=== PATIENT | female | born 1990 | race African-American/Black ===

== ENCOUNTER 2016-10-12 00:35 | Emergency (ER) | payer OTHER ==
[2016-10-12 00:46] VITALS: BMI 34.7
[2016-10-12] MEDS ORDERED: KETOROLAC TROMETHAMINE 30 MG/1 ML VIAL IM ONE (01:17)
[2016-10-12] MEDS ORDERED: diazePAM CARPU-JECT 10 MG/2 ML DISP.SYRIN IVPUSH ONE (01:17)
[2016-10-12] MEDS ORDERED: SODIUM CHLORIDE 1,000 ML IV STA (01:17)
--- NOTE | 2016-10-12 01:23 | PDOC ---
History of Present Illness - General Chief Complaint: Pain Stated Complaint: NECK PAIN Time Seen by Provider: 10/12/16 01:03 History Source: Patient Exam Limitations: No Limitations - History of Present Illness Initial Comments: 10/12/16 01:18 26yo Female patient presents to ED c/o neck pain. Patient reports pain began night as a cramp with shooting pains and progressively gotten worse. She states she has been using Motrin and Zanaflex for symptoms management. Patient states symptoms worsened tonight to the point she has limited ROM in her neck and swollen left shoulder. 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 LNMP: Oct 02. She denies fever, cough, photophobia, CP, Abd pain, n/v/d , rash, confusion, disorientation, diff breathing or any other complaints at this time. Timing/Duration: other (3 day history) Severity: severe Modifying Factors: improves with: immobilization, medication Associated Symptoms: denies: denies symptoms, chest pain, cough, diaphoresis, fever/chills, headaches, loss of appetite, malaise, nausea/vomiting, rash, seizure, shortness of breath, syncope, weakness, other Aspirin Received prior to arrival: No: no aspirin today, unknown, 81 mg x 1, 81 mg x 2, 81 mg x 3, 81 mg x 4, 325 mg x 1, provided at home, provided by EMS, provided by ED Past History - Travel Traveled outside of the country in the last 30 days: No Close contact w/someone who was outside of country & ill: No - Past Medical History Allergies/Adverse Reactions: Allergies Allergy/AdvReac Type Severity Reaction Status Date / Time shellfish derived Allergy Verified 10/12/16 00:43 Home Medications: Ambulatory Orders Ibuprofen 800 mg PO Q8H PRN #30 tablet 10/12/16 Methocarbamol [Robaxin -] 750 mg PO Q8H PRN #21 tablet 10/12/16 Other medical history: denies - Surgical History Abdominal Surgery: Yes (umbilical hernia at 9 yrs old) - Psycho/Social/Smoking Cessation Hx Suicidal Ideation: No Smoking History: Never smoked Review of Systems - Review of Systems Able to Perform ROS?: Yes Is the patient limited Chinese proficient: No Constitutional: No: Chills, Fever, Loss of Appetite, Malaise, Night Sweats, Weakness HEENTM: No: Blurred Vision, Double Vision, Nose Congestion, Nose Bleeding, Throat Pain, Throat Swelling, Difficulty Swallowing Respiratory: No: Cough, Orthopnea, Shortness of Breath, Stridor, Wheezing, Productive cough, Hemoptysis Cardiac (ROS): No: Chest Pain, Edema, Lightheadedness, Palpitations, Syncope, Chest Tightness ABD/GI: No: Diarrhea, Nausea, Poor Appetite, Poor Fluid Intake, Rectal Bleeding , Vomiting, Tarry Stools : No: Burning, Dysuria, Discharge, Frequency, Flank Pain, Pain, Urgency Musculoskeletal: Yes: Neck Pain. No: Back Pain, Joint Pain, Joint Swelling, Muscle Pain, Muscle Weakness, Joint Stiffness Integumentary: No: Bruising, Erythema, Rash Neurological: No: Seizure, Weakness All Other Systems: Reviewed and Negative *Physical Exam - Vital Signs Last Vital Signs Temp Pulse Resp BP Pulse Ox 98 F 78 18 134/77 99 10/12/16 00:37 10/12/16 00:37 10/12/16 00:37 10/12/16 00:37 10/12/16 00:37 - Physical Exam General Appearance: Yes: Nourished, Appropriately Dressed, Apparent Distress, Moderate Distress. No: Mild Distress HEENT: positive: EOMI, MI, Normal ENT Inspection, Normal Voice, Symmetrical, TMs Normal, Pharynx Normal. negative: Photophobia, Muffled/Hoarse voice, Pharyngeal Erythema, Tonsillar Exudate, Sinus Tenderness, TM Bulging, TM Dull, TM Erythema, Excessive drooling Neck: positive: Tender (+ Left lateral neck tenderness on examination.), Trachea midline, Normal Thyroid, Supple, Decreased range of motion, Tender lateral. negative: Rigid, Stridor, Lymphadenopathy (R), Lymphadenopathy (L), Tender midline Respiratory/Chest: positive: Lungs Clear, Normal Breath Sounds. negative: Respiratory Distress, Accessory Muscle Use, Labored Respiration, Rapid RR, Rhonchi, Stridor, Wheezing Cardiovascular: positive: Regular Rhythm, Regular Rate. negative: Edema, JVD, Murmur Gastrointestinal/Abdominal: positive: Normal Bowel Sounds, Soft. negative: Distended, Guarding, Rebound, Tenderness Lymphatic: negative: Adenopathy Musculoskeletal: positive: Normal Inspection, Muscle Spasm (Left trapezius muscle). negative: CVA Tenderness Extremity: positive: Normal Capillary Refill, Normal Inspection. 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 Patient also request 1 day off work. Will d/c home with antiinflammatory and muscle relaxants. *DC/Admit/Observation/Transfer Diagnosis at time of Disposition: Sprain of cervical neck Qualifiers: Encounter type: initial encounter Qualified Code(s): S13.9XXA - Sprain of joints and ligaments of unspecified parts of neck, initial encounter - Discharge Dispostion Disposition: HOME Condition at time of disposition: Improved Admit: No - Prescriptions Prescriptions: Ibuprofen 800 mg PO Q8H PRN #30 tablet PRN Reason: Mild Pain Methocarbamol [Robaxin -] 750 mg PO Q8H PRN #21 tablet PRN Reason: Neck Pain - Patient Instructions Printed Discharge Instructions: Whiplash Additional Instructions: FOLLOW UP WITH YOUR PRIMARY CARE PROVIDER IN 1 WEEK. CALL TO SCHEDULE APPOINTMENT. TAKE MEDICATIONS PRESCRIBED. APPLY WARM COMPRESS TO AFFECTED AREA NEEDED. TAKE WARM SHOWERS. RETURN IF WORSENING OF SYMPTOMS. Print Language: SLOVENIAN - Post Discharge Activity Work/School Note: Back to Work
[2016-10-12 01:50] LABS: URINE APPEARANCE CLEAR; URINE BILIRUBIN NEGATIVE (NEGATIVE); URINE BLOOD NEGATIVE (NEGATIVE); URINE COLOR LTYELLOW; URINE GLUCOSE (UA) NEGATIVE (NEGATIVE); URINE KETONE TRACE (NEGATIVE); URINE LEUK ESTERASE NEGATIVE (NEGATIVE); URINE NITRITE NEGATIVE (NEGATIVE); URINE PROTEIN NEGATIVE (NEGATIVE); URINE UROBILINOGEN NEGATIVE E.U./dl (0.2-1.0)
[2016-10-12] MEDS ORDERED: diazePAM CARPU-JECT 10 MG/2 ML DISP.SYRIN ONE (01:53)
[2016-10-12] MEDS ORDERED: KETOROLAC TROMETHAMINE 30 MG/1 ML VIAL ONE (01:54)
[2016-10-12 04:04] VITALS: BP 122/76; PULSE 75; TEMP 98
== END 2016-10-12 04:20 | disposition home or self-care (01) ==
LOC: JER 00:35
PROC: 3E0337Z Introduction of Electrolytic and Water Balance Substance into Peripheral Vein, Percutaneous Approach (ICD-10-PCS; principal; 2016-10-12)
PROC: 3E033NZ Introduction of Analgesics, Hypnotics, Sedatives into Peripheral Vein, Percutaneous Approach (ICD-10-PCS; 2016-10-12)
PROC: 3E0233Z Introduction of Anti-inflammatory into Muscle, Percutaneous Approach (ICD-10-PCS; 2016-10-12)
DX: S13.8XXA Sprain of joints and ligaments of other parts of neck, initial encounter (principal); X58.XXXA Exposure to other specified factors, initial encounter; Y93.89 Activity, other specified; Y92.9 Unspecified place or not applicable; Y99.9 Unspecified external cause status
CPT/HCPCS: 81003; 84703; 96361; 96372; 96374; 99283-25

== ENCOUNTER 2018-03-19 20:20 | Emergency (ER) | payer SELFPAY ==
[2018-03-19 20:26] VITALS: BP 114/91; PULSE 97; TEMP 98.6; BMI 33.5
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
[2018-03-19] MEDS ORDERED: DIPHTH,PERTUSS(ACELL),TET 0.5 ML DISP.SYRIN IM ONE (20:45)
[2018-03-19] MEDS ORDERED: AMOX TR/POT CLAV 875MG/125MG TABLETS (FP) PO ONE (20:48)
[2018-03-19] MEDS ORDERED: AMOX TR/POT CLAV 875MG/125MG TABLETS (FP) ONE (20:56)
== END 2018-03-19 21:10 | disposition home or self-care (01) ==
LOC: FER 20:20
PROC: 3E0234Z Introduction of Serum, Toxoid and Vaccine into Muscle, Percutaneous Approach (ICD-10-PCS; principal; 2018-03-19)
DX: S51.852A Open bite of left forearm, initial encounter (principal); W50.3XXA Accidental bite by another person, initial encounter; Y93.89 Activity, other specified; Y92.159 Unspecified place in reform school as the place of occurrence of the external cause; Y99.0 Civilian activity done for income or pay; Z72.0 Tobacco use
CPT/HCPCS: 90715; 99283-25

== ENCOUNTER 2018-10-03 13:07 | Emergency (ER) | payer OTHER ==
[2018-10-03 13:12] VITALS: BP 140/92; PULSE 133; BMI 34.9
[2018-10-03] MEDS ORDERED: KETOROLAC TROMETHAMINE 60 MG/2 ML VIAL IM ONE (13:50)
--- NOTE | 2018-10-03 13:52 | PDOC ---
History of Present Illness - General Chief Complaint: Sore Throat Stated Complaint: SORE THROAT Time Seen by Provider: 10/03/18 13:35 - History of Present Illness Initial Comments: 10/03/18 13:51 28-year-old female poor historian without comorbidities presents for evaluation of sore throat 2 days. She states she was seen in another hospital last night given antibiotics for throat infection she is unsure the antibiotics however she states the pharmacy was unable to give her the antibiotics that was prescribed to her because they did not have them. Past History - Past Medical History Allergies/Adverse Reactions: Allergies Allergy/AdvReac Type Severity Reaction Status Date / Time shrimp Allergy Verified 10/03/18 13:23 Home Medications: Ambulatory Orders NK [No Known Home Medication] 10/03/18 COPD: No - Surgical History Abdominal Surgery: Yes (UMBILICIAL HERNIA) - Suicide/Smoking/Psychosocial Hx Smoking History: Never smoked Have you smoked in the past 12 months: Yes Number of Cigarettes Smoked Daily: 1 Hx Alcohol Use: No (occasional) Review of Systems - Review of Systems Constitutional: Yes: Fever, Malaise HEENTM: Yes: Throat Pain *Physical Exam - Vital Signs Last Vital Signs Temp Pulse Resp BP Pulse Ox 102.8 F H 133 H 20 140/92 99 10/03/18 13:09 10/03/18 13:09 10/03/18 13:09 10/03/18 13:09 10/03/18 13:09 - Physical Exam Comments: 10/03/18 13:52 HEAD: NC/AT EYES: Conjuntiva clear Ears: Canals and TM's normal NOSE: No d/c THROAT: Moist mucous membrances, oral pharanx clear, uvula midline NECK: Supple without adenopathy CARDIAC: S1 S2 LUNGS: CTA Full and Equal breath sounds ABDOMEN: Soft NT ND MS: Full ROM in all joints without edema NEUROLOGIC: No gross sensory or motor deficits, NVID SKIN: Normal color and temperature no lesions or rashes Moderate Sedation - Procedure Monitoring Vital Signs: Procedure Monitoring Vital Signs Temperature 102.8 F H 10/03/18 13:09 Pulse Rate 133 H 10/03/18 13:09 Respiratory Rate 20 10/03/18 13:09 Blood Pressure 140/92 10/03/18 13:09 O2 Sat by Pulse Oximetry (%) 99 10/03/18 13:09 *DC/Admit/Observation/Transfer Diagnosis at time of Disposition: Upper respiratory infection - Discharge Dispostion Disposition: HOME Condition at time of disposition: Stable Decision to Admit order: No - Referrals Referrals: Chao Ram [Non Staff, Medical] - - Patient Instructions Printed Discharge Instructions: DI for Viral Upper Respiratory Infection -- Adult Additional Instructions: Her flu swab and strep test were negative today. Return to the emergency room should symptoms worsen or go unresolved. Please follow-up with primary care physician in one to 2 days for further evaluation and treatment options. Continue to take Tylenol and Motrin for pain and fever if as needed - Post Discharge Activity
[2018-10-03] MEDS ORDERED: KETOROLAC TROMETHAMINE 60 MG/2 ML VIAL ONE (13:53)
[2018-10-03 14:47] VITALS: TEMP 101.4
== END 2018-10-03 14:52 | disposition home or self-care (01) ==
LOC: JERFT 13:07
PROC: 3E0233Z Introduction of Anti-inflammatory into Muscle, Percutaneous Approach (ICD-10-PCS; principal; 2018-10-03)
DX: J06.9 Acute upper respiratory infection, unspecified (principal); B97.89 Other viral agents as the cause of diseases classified elsewhere
CPT/HCPCS: 87070; 87804; 87880; 96372; 99281-25

== ENCOUNTER 2019-05-09 17:10 | Emergency (ER) | payer OTHER ==
[2019-05-09 17:24] VITALS: BP 139/71; PULSE 84; TEMP 98.3; BMI 36.9
--- NOTE | 2019-05-09 17:31 | PDOC ---
History of Present Illness - General Chief Complaint: Cold Symptoms Stated Complaint: HEAD/CHEST/PAIN/DIFFICULTY BREATHING Time Seen by Provider: 05/09/19 17:25 - History of Present Illness Initial Comments: 05/09/19 17:30 28-year-old female presents for evaluation of cold symptoms times one day without fever Past History - Past Medical History Allergies/Adverse Reactions: Allergies Allergy/AdvReac Type Severity Reaction Status Date / Time shellfish derived Allergy Verified 05/09/19 17:24 shrimp Allergy Verified 10/03/18 13:23 Home Medications: Ambulatory Orders NK [No Known Home Medication] 10/03/18 COPD: No - Surgical History Abdominal Surgery: Yes (UMBILICIAL HERNIA) - Suicide/Smoking/Psychosocial Hx Smoking History: Never smoked Have you smoked in the past 12 months: Yes Number of Cigarettes Smoked Daily: 1 Information on smoking cessation initiated: No Hx Alcohol Use: No Drug/Substance Use Hx: No Review of Systems - Review of Systems Constitutional: No: Fever HEENTM: Yes: Nose Congestion *Physical Exam - Vital Signs Last Vital Signs Temp Pulse Resp BP Pulse Ox 98.3 F 84 18 139/71 99 05/09/19 17:22 05/09/19 17:22 05/09/19 17:22 05/09/19 17:22 05/09/19 17:22 - Physical Exam Comments: 05/09/19 17:30 HEAD: NC/AT EYES: Conjuntiva clear Ears: Canals and TM's normal NOSE: No d/c THROAT: Moist mucous membrances, oral pharanx clear, uvula midline NECK: Supple without adenopathy CARDIAC: S1 S2 LUNGS: CTA Full and Equal breath sounds ABDOMEN: Soft NT ND MS: Full ROM in all joints without edema NEUROLOGIC: No gross sensory or motor deficits, NVID SKIN: Normal color and temperature no lesions or rashes Medical Decision Making - Medical Decision Making 05/09/19 17:30 Most likely a viral upper respiratory infection. Discussed supportive care. *DC/Admit/Observation/Transfer Diagnosis at time of Disposition: Upper respiratory infection - Discharge Dispostion Disposition: HOME Condition at time of disposition: Stable Decision to Admit order: No - Referrals Referrals: Richard Rivas MD [Staff Physician] - - Patient Instructions Printed Discharge Instructions: DI for Viral Upper Respiratory Infection -- Adult Additional Instructions: Return To the emergency room for worsening symptoms. Please follow-up with internal medicine in 1-2 days for further evaluation and treatment options. He does not require antibiotics at this time. - Post Discharge Activity
== END 2019-05-09 18:19 | disposition home or self-care (01) ==
LOC: JERFT 17:10
DX: J06.9 Acute upper respiratory infection, unspecified (principal)
CPT/HCPCS: 99282-25

== ENCOUNTER 2019-06-29 11:17 | Emergency (ER) | payer OTHER ==
[2019-06-29 11:23] VITALS: BP 120/75; PULSE 83; TEMP 98.4; BMI 35.2
[2019-06-29] MEDS ORDERED: METOCLOPRAMIDE HCL INJECTION 10 MG/2 ML VIAL IVPB ONE (11:46)
[2019-06-29] MEDS ORDERED: KETOROLAC TROMETHAMINE 30 MG/1 ML VIAL IVPUSH ONE (11:49)
[2019-06-29] MEDS ORDERED: METOCLOPRAMIDE HCL INJECTION 10 MG/2 ML VIAL ONE (11:54)
[2019-06-29] MEDS ORDERED: KETOROLAC TROMETHAMINE 30 MG/1 ML VIAL ONE (11:54)
--- NOTE | 2019-06-29 12:00 | PDOC ---
History of Present Illness - General Chief Complaint: Headache Stated Complaint: SEVERE HEADACHE Time Seen by Provider: 06/29/19 11:31 History Source: Patient - History of Present Illness Severity: Yes: moderate Past History - Past Medical History Allergies/Adverse Reactions: Allergies Allergy/AdvReac Type Severity Reaction Status Date / Time shellfish derived Allergy Verified 06/29/19 11:23 shrimp Allergy Verified 06/29/19 11:23 Home Medications: Ambulatory Orders NK [No Known Home Medication] 10/03/18 COPD: No - Surgical History Abdominal Surgery: Yes (UMBILICIAL HERNIA) - Psycho Social/Smoking Cessation Hx Smoking History: Never smoked Have you smoked in the past 12 months: Yes Number of Cigarettes Smoked Daily: 1 Hx Alcohol Use: Yes (OCCASIONALLY) Drug/Substance Use Hx: No Review of Systems - Review of Systems Constitutional: No: Chills, Fever, Unexplained wgt Loss HEENTM: No: Eye Pain, Blurred Vision ABD/GI: No: Nausea, Vomiting Neurological: Yes: Headache. No: Dizziness *Physical Exam - Vital Signs Last Vital Signs Temp Pulse Resp BP Pulse Ox 98.4 F 83 16 120/75 100 06/29/19 11:21 06/29/19 11:21 06/29/19 11:21 06/29/19 11:21 06/29/19 11:21 - Physical Exam General Appearance: Yes: Appropriately Dressed. 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 Pain located to frontal head diffusely , sharp, 8-9/10, intermittent, with no exacerbating factors. Taking multiple [id number] meds with no relief. Denies any dizziness visual changes nausea and vomiting. Has had headaches in the past but usually not this persistent. No recent head injury. see exam GONZALEZ No red flags at this time Stable and in NAD w/ intact neuro exam Declines preg test as not currently sexually active per pt -pain control in ED and reassess 06/29/19 13:18 Went to re-assess patient after pain meds and unable to locate patient in ED. Patient's IV bag with IV catheter seen hanging on IV pole. ED nurse aware Discharge - Discharge Information Problems reviewed: Yes Clinical Impression/Diagnosis: Headache Qualifiers: Headache type: unspecified Headache chronicity pattern: acute headache Intractability: not intractable Qualified Code(s): R51 - Headache Condition: Stable Disposition: ELOPED - Follow up/Referral Referrals: Eloy Schilling MD [Staff Physician] - - Patient Discharge Instructions Patient Printed Discharge Instructions: DI for Headache Additional Instructions: The cause of her headache is unclear at this time and you will need further evaluation with a neurologist. Please follow-up with Dr. Schilling of neurology For your headaches try extra strength Tylenol or Excedrin as needed - Post Discharge Activity Work/Back to School Note: Back to Work
--- NOTE | 2019-06-29 12:43 | PDOC ---
*Physical Exam - Vital Signs Last Vital Signs Temp Pulse Resp BP Pulse Ox 98.4 F 83 16 120/75 100 06/29/19 11:21 06/29/19 11:21 06/29/19 11:21 06/29/19 11:21 06/29/19 11:21 ED Treatment Course - Medications Given in the ED: ED Medications Discontinued Medications Generic Name Dose Route Start Last Admin Trade Name Amaury PRN Reason Stop Dose Admin Ketorolac Tromethamine 30 mg 06/29/19 11:49 06/29/19 12:12 Toradol Injection - IVPUSH 06/29/19 11:50 30 mg ONCE ONE Administration Metoclopramide HCl 10 mg 06/29/19 11:46 06/29/19 12:12 Reglan Injection - IVPB 06/29/19 11:47 10 mg ONCE ONE Administration Medical Decision Making - Medical Decision Making 06/29/19 12:43 Pt seen by Midlevel Provider under my direct supervision I was available for consultation Pt apparently eloped prior to the completing her assessment and treatment I agree with plan as outlined by Midlevel Provider Discharge - Discharge Information Problems reviewed: Yes Clinical Impression/Diagnosis: Eloped from emergency department Headache Qualifiers: Headache type: unspecified Headache chronicity pattern: acute headache Intractability: not intractable Qualified Code(s): R51 - Headache Condition: Stable Disposition: ELOPED - Follow up/Referral Referrals: Eloy Schilling MD [Staff Physician] - - Patient Discharge Instructions Patient Printed Discharge Instructions: DI for Headache Additional Instructions: The cause of her headache is unclear at this time and you will need further evaluation with a neurologist. Please follow-up with Dr. Schilling of neurology For your headaches try extra strength Tylenol or Excedrin as needed - Post Discharge Activity Work/Back to School Note: Back to Work
== END 2019-06-29 13:30 | disposition left against medical advice (07) ==
LOC: JER 11:17
PROC: 3E0333Z Introduction of Anti-inflammatory into Peripheral Vein, Percutaneous Approach (ICD-10-PCS; principal; 2019-06-29)
PROC: 3E033GC Introduction of Other Therapeutic Substance into Peripheral Vein, Percutaneous Approach (ICD-10-PCS; 2019-06-29)
DX: R51 Headache (principal); Z91.013 Allergy to seafood
CPT/HCPCS: 96374; 96375; 99282-25

== ENCOUNTER 2019-09-23 20:32 | Emergency (ER) | payer OTHER ==
--- NOTE | 2019-09-23 20:34 | PDOC ---
Rapid Medical Evaluation Chief Complaint: Pain Time Seen by Provider: 09/23/19 20:33 Medical Evaluation: Allergies Allergy/AdvReac Type Severity Reaction Status Date / Time shellfish derived Allergy Verified 06/29/19 11:23 shrimp Allergy Verified 06/29/19 11:23 09/23/19 20:33 HPI: Abdominal pain x1 week PE:Labs ORDERS: Belly labs Discharge Disposition - Diagnosis Abdominal pain - Referrals - Patient Instructions - Post Discharge Activity
[2019-09-23 20:36] VITALS: TEMP 97.7; BMI 35.7
[2019-09-23] MEDS ORDERED: FAMOTIDINE 20 MG/50 ML IVPB 20 MG/50 ML MG IVPB ONE ×2 (21:18→21:46)
[2019-09-23] MEDS ORDERED: METOCLOPRAMIDE HCL INJECTION 10 MG/2 ML VIAL IVPB ONE (21:18)
[2019-09-23] MEDS ORDERED: SODIUM CHLORIDE 1,000 ML IV STA (21:18)
[2019-09-23] MEDS ORDERED: ACETAMINOPHEN 1000 MG/100 ML VIAL (NON FORMULARY) IVPB ONE (21:18)
--- NOTE | 2019-09-23 21:40 | PDOC ---
History of Present Illness - General History Source: Patient Exam Limitations: Clinical Condition - History of Present Illness Initial Comments: 09/23/19 21:36 Patient with no significant past medical history present with complaint of one- week history of pain to right lower abdomen and burning sensation epigastric region after eating. Patient reported she followed up with her [employer] 4 days ago for symptoms and all STD test done was negative which patient presented with lab results but report no ultrasound of the abdomen was done. Patient reported history of ovarian cyst. Denies urinary frequency, dysuria, burning with urination, chest pain, shortness of breath, diarrhea or constipation. LMP August 24. Patient reports she was prescribed Midol for abdominal pain but has not been taking it. Denies any other symptoms Is this a multiple visit Asthma Patient?: No Timing/Duration: 1 week Associated Symptoms: denies: chest pain, cough, fever/chills, shortness of breath, weakness <Alin Son - Last Filed: 09/24/19 01:11> <Adriano Chiang - Last Filed: 09/24/19 02:32> - General Chief Complaint: Pain Stated Complaint: LOWER ABD PAIN Time Seen by Provider: 09/23/19 20:33 Past History - Past Medical History COPD: No - Surgical History Abdominal Surgery: Yes (UMBILICIAL HERNIA) - Psycho Social/Smoking Cessation Hx Smoking History: Never smoked Have you smoked in the past 12 months: Yes Number of Cigarettes Smoked Daily: 1 Hx Alcohol Use: Yes (OCCASIONALLY) Drug/Substance Use Hx: No <Alin Son - Last Filed: 09/24/19 01:11> <Adriano Chiang - Last Filed: 09/24/19 02:32> - Past Medical History Allergies/Adverse Reactions: Allergies Allergy/AdvReac Type Severity Reaction Status Date / Time shellfish derived Allergy Verified 09/23/19 20:36 shrimp Allergy Verified 09/23/19 20:36 Home Medications: Ambulatory Orders Docusate Sodium [Colace -] 100 mg PO BID #14 capsule 09/24/19 Polyethylene Glycol 3350 [Miralax (For Daily Use) -] 17 gm PO DAILY 7 Days #1 bottle 09/24/19 Review of Systems - Review of Systems Able to Perform ROS?: Yes Is the patient limited Swedish proficient: No Constitutional: No: Chills, Fever, Malaise HEENTM: No: Symptoms Reported, See HPI, Eye Pain, Blurred Vision, Tearing, Recent change in vision, Double Vision, Cataracts, Ear Pain, Ocular Prothesis, Ear Discharge, Nose Pain, Nose Congestion, Tinnitus, Nose Bleeding, Hearing Loss , Throat Pain, Throat Swelling, Mouth Pain, Dental Problems, Difficulty Swallowing, Mouth Swelling, Other Respiratory: No: Symptoms reported, See HPI, Cough, Orthopnea, Shortness of Breath, SOB with Exertion, SOB at Rest, Stridor, Wheezing, Productive cough, Hemoptysis, Other Cardiac (ROS): Yes: Symptoms Reported, See HPI, Other (heart burn). No: Chest Pain, Edema, Irregular Heart Rate, Lightheadedness, Palpitations, Syncope, Chest Tightness ABD/GI: Yes: Symptoms Reported, See HPI, Nausea, Abdominal cramping (LLQ abd pain). No: Abd. Pain w/ defecation, Blood Streaked Bowels, Constipated, Diarrhea, Difficulty Swallowing, Poor Appetite, Poor Fluid Intake, Rectal Bleeding, Vomiting, Indigestion, Other : No: Symptoms Reported, Burning, Dysuria, Discharge, Frequency, Hematuria, Urgency Musculoskeletal: No: Symptoms Reported Neurological: No: Symptoms reported, Dizziness All Other Systems: Reviewed and Negative <HuyAlin Perez - Last Filed: 09/24/19 01:11> *Physical Exam - Vital Signs Last Vital Signs Temp Pulse Resp BP Pulse Ox 97.7 F 107 H 18 135/83 99 09/23/19 20:33 09/23/19 20:33 09/23/19 20:33 09/23/19 20:33 09/23/19 20:33 - Physical Exam 09/23/19 21:40 GENERAL: Well developed, well nourished. Awake and alert. No acute distress. HEENT: Normocephalic, atraumatic. PERRLA, EOMI. No conjunctival pallor. Sclera are non-icteric. Moist mucous membranes. Oropharynx is clear. NECK: Supple. Full ROM. CARDIOVASCULAR: Regular rate and rhythm. No murmurs, rubs, or gallops. Distal pulses are 2+ and symmetric. PULMONARY: No evidence of respiratory distress. Lungs clear to auscultation bilaterally. No wheezing, rales or rhonchi. ABDOMINAL: Soft. Moderate tenderness to left lower quadrant. Non-distended. No rebound or guarding. No organomegaly. Normoactive bowel sounds. MUSCULOSKELETAL Normal range of motion at all joints. SKIN: Warm and dry. Normal capillary refill. No rashes. No jaundice. NEUROLOGICAL: Alert, awake, appropriate. Gait is normal without ataxia. PSYCHIATRIC: Cooperative. Good eye contact. Appropriate mood General Appearance: Yes: Nourished, Appropriately Dressed. No: Apparent Distress <Alin Son - Last Filed: 09/24/19 01:11> - Vital Signs Last Vital Signs Temp Pulse Resp BP Pulse Ox 97.7 F 80 18 130/80 100 09/23/19 20:33 09/24/19 01:30 09/24/19 01:30 09/24/19 01:30 09/24/19 01:30 <Adriano Chiang - Last Filed: 09/24/19 02:32> ED Treatment Course - LABORATORY CBC & Chemistry Diagram: 09/23/19 21:29 09/23/19 21:29 <Alin Son - Last Filed: 09/24/19 01:11> - LABORATORY CBC & Chemistry Diagram: 09/23/19 21:29 09/23/19 21:29 - ADDITIONAL ORDERS Additional order review: Laboratory Results 09/23/19 09/23/19 09/23/19 21:29 21:29 21:29 Sodium 139 Potassium 3.9 Chloride 107 Carbon Dioxide 25 Anion Gap 6 L BUN 10.9 Creatinine 0.8 Est GFR (CKD-EPI)AfAm 114.66 Est GFR (CKD-EPI)NonAf 98.93 Random Glucose 75 Calcium 8.8 Total Bilirubin 0.4 AST 21 ALT 21 Alkaline Phosphatase 62 Total Protein 7.8 Albumin 3.5 Lipase 106 Serum , Qual Negative Urine Color Dk yellow Urine Appearance Turbid Urine pH 5.0 Ur Specific [place] 1.030 Urine Protein 2+ H Urine Glucose (UA) Negative Urine Ketones 3+ H Urine Blood 3+ H Urine Nitrite Negative Urine Bilirubin Negative Urine Urobilinogen 1.0 Ur Leukocyte Esterase Trace Urine WBC (Auto) 23 Urine RBC (Auto) 853 Urine Casts (Auto) 22 U Epithel Cells (Auto) 1.5 Urine Bacteria (Auto) 255.9 09/23/19 21:29 RBC 4.65 MCV 89.1 MCHC 32.3 RDW 14.7 MPV 10.5 Neutrophils % 57.0 Lymphocytes % 31.5 Monocytes % 9.0 Eosinophils % 1.9 Basophils % 0.6 - Medications Given in the ED: ED Medications Discontinued Medications Generic Name Dose Route Start Last Admin Trade Name Amaury PRN Reason Stop Dose Admin Acetaminophen 1,000 mg 09/23/19 21:18 09/23/19 21:58 Ofirmev Injection - IVPB 09/23/19 21:19 1,000 mg ONCE ONE Administration Famotidine/Sodium Chloride 20 mg in 50 mls @ 100 mls/hr 09/23/19 21:18 21:58 Pepcid 20 Mg Premixed Ivpb - IVPB 09/23/19 21:47 100 mls/hr ONCE ONE Administration Sodium Chloride 1,000 mls @ 1,000 mls/hr 09/23/19 21:18 09/23/19 21:58 Normal Saline - IV 09/23/19 22:17 1,000 mls/hr ASDIR STA Administration Metoclopramide HCl 10 mg 09/23/19 21:18 09/23/19 21:58 Reglan Injection - IVPB 09/23/19 21:19 10 mg ONCE ONE Administration <Adriano Chiang - Last Filed: 09/24/19 02:32> Medical Decision Making - Medical Decision Making 09/23/19 21:37 Patient with no significant past medical history present with complaint of one- week history of pain to right lower abdomen and burning sensation epigastric region after eating. Patient reported she followed up with her [employer] 4 days ago for symptoms and all STD test done was negative which patient presented with lab results but report no ultrasound of the abdomen was done. Patient reported history of ovarian cyst. Denies urinary frequency, dysuria, burning with urination, chest pain, shortness of breath, diarrhea or constipation. LMP August 24. Patient reports she was prescribed Midol for abdominal pain but has not been taking it. Denies any other symptoms. Patient was seen in urgent care today for symptoms and was advised to come to ED to rule out diverticulitis based on exam. Exam significant for moderate tenderness to left lower quadrant abdomen without guarding or rebound. Rest of abdomen nontender. Normal cardio exam. Lungs clear to auscultation bilateral. Symptoms likely ovarian cyst versus diverticulitis. CBC, CMP and lipase lab ordered. Urine test, UA urine culture lab ordered. IV hydration with normal saline 1 L, Pepcid 20 mg IV and Tylenol 1 g IV ordered for abdominal pain. Will consider abdominal CT after lab results 09/24/19 01:02 CBC and chemistry lab unremarkable. Abdominal CT shows fecal matter in the colon consistent with constipation otherwise normal CT. Patient symptoms likely caused by constipation stable for patient management on Colace twice daily and MiraLAX 17 g p.o. daily of constipation with GI follow-up. Patient advised to increase fluid intake <Alin Son - Last Filed: 09/24/19 01:11> - Medical Decision Making 09/24/19 02:32 The patient was seen and evaluated in conjunction with ESTUARDO Son under my direct supervision, ancillary studies were reviewed. I agree with the plan as outlined by ESTUARDO Son. <Adriano Chiang - Last Filed: 09/24/19 02:32> Discharge - Discharge Information Problems reviewed: Yes - Admission No <Alin Son - Last Filed: 09/24/19 01:11> <Adriano Chiang - Last Filed: 09/24/19 02:32> - Discharge Information Clinical Impression/Diagnosis: Abdominal pain Qualifiers: Abdominal location: left lower quadrant Qualified Code(s): R10.32 - Left lower quadrant pain Constipation Qualifiers: Constipation type: slow transit constipation Qualified Code(s): K59.01 - Slow transit constipation Condition: Improved Disposition: HOME - Additional Discharge Information Prescriptions: Docusate Sodium [Colace -] 100 mg PO BID #14 capsule Polyethylene Glycol 3350 [Miralax (For Daily Use) -] 17 gm PO DAILY 7 Days #1 bottle - Follow up/Referral Referrals: Syed Calix MD [Staff Physician] - - Patient Discharge Instructions Patient Printed Discharge Instructions: Increased Dietary Fiber May Improve Constipation Conditions With Pelvic Jason, DI for Constipation Additional Instructions: Your blood work is normal. Your abdominal CAT scan shows retained stool consistent with constipation. Take prescribed medication as prescribed for constipation. Increase fluid intake. Increase fiber intake. Follow-up referred GI doctor if no improvement in 3 days - Post Discharge Activity Work/Back to School Note: Back to Work
[2019-09-23] MEDS ORDERED: METOCLOPRAMIDE HCL INJECTION 10 MG/2 ML VIAL ONE (21:45)
[2019-09-23] MEDS ORDERED: ACETAMINOPHEN INJECTION 100 ML IVPB ONE (21:46)
[2019-09-23 21:53] LABS: BASO % 0.6 % (0-2.0); EOS % 1.9 % (0-4.5); HEMATOCRIT 41.4 % (32.4-45.2); HEMOGLOBIN 13.4 GM/dL (10.7-15.3); LYMPH % 31.5 % (8-40); MCH 28.7 pg (25.7-33.7); MCHC 32.3 g/dl (32.0-36.0); MEAN CELL VOLUME 89.1 fl (80-96); MEAN PLT VOLUME 10.5 fl (7.5-11.1); PLATELET COUNT 218 K/MM3 (134-434); RBC 4.65 M/mm3 (3.60-5.2); RDW 14.7 % (11.6-15.6); WHITE BLOOD COUNT 4.2 K/mm3 (4.0-10.0)
[2019-09-23 21:57] LABS: EPI CELLS 1.5 /HPF (0-5/HPF); HYALINE CASTS 22 /lpf (0-8); URINE APPEARANCE TURBID; URINE BACTERIA 255.9 /hpf (NEGATIVE); URINE BILIRUBIN NEGATIVE (NEGATIVE); URINE COLOR DK YELLOW; URINE GLUCOSE (UA) NEGATIVE (NEGATIVE); URINE KETONE 3+ (NEGATIVE); URINE LEUK ESTERASE TRACE (NEGATIVE); URINE NITRITE NEGATIVE (NEGATIVE); URINE PROTEIN 2+ (NEGATIVE); URINE RBC 853 /hpf (0-4); URINE WBC 23 /hpf (0-5)
[2019-09-23 22:23] LABS: ALBUMIN 3.5 g/dl (3.4-5.0); BILIRUBIN,TOTAL 0.4 mg/dL (0.2-1); BLOOD UREA NITROGEN 10.9 mg/dL (7-18); CALCIUM 8.8 mg/dL (8.5-10.1); CREATININE 0.8 mg/dL (0.55-1.3); POTASSIUM 3.9 mmol/L (3.5-5.1); TOT PROT 7.8 g/dl (6.4-8.2)
[2019-09-24 01:43] VITALS: BP 130/80; PULSE 80
== END 2019-09-24 01:44 | disposition home or self-care (01) ==
LOC: JER 20:32
PROC: 3E033GC Introduction of Other Therapeutic Substance into Peripheral Vein, Percutaneous Approach (ICD-10-PCS; principal; 2019-09-23)
PROC: 3E033GC Introduction of Other Therapeutic Substance into Peripheral Vein, Percutaneous Approach (ICD-10-PCS; 2019-09-23)
PROC: 3E033NZ Introduction of Analgesics, Hypnotics, Sedatives into Peripheral Vein, Percutaneous Approach (ICD-10-PCS; 2019-09-23)
DX: K59.01 Slow transit constipation (principal); Z91.013 Allergy to seafood
CPT/HCPCS: 36415; 74177-TC; 80053; 81003; 83690; 84703; 85025; 87086; 96365; 96375; 99282-25; J0131; J7030; Q9967

== ENCOUNTER 2020-09-12 02:56 | Emergency (ER) | payer OTHER ==
[2020-09-12 03:45] VITALS: TEMP 98.2; BMI 31.8
[2020-09-12] MEDS ORDERED: ACETAMINOPHEN 1000 MG/100 ML VIAL (NON FORMULARY) IVPB ONE (04:22)
[2020-09-12] MEDS ORDERED: ONDANSETRON 4 MG/2 ML VIAL IVPUSH ONE (04:22)
[2020-09-12] MEDS ORDERED: FAMOTIDINE 20 MG/50 ML IVPB 20 MG/50 ML MG IVPB ONE ×2 (04:22→04:59)
[2020-09-12] MEDS ORDERED: SODIUM CHLORIDE 0.9% 500 ML INFUS.BAG IV ONE (04:22)
[2020-09-12] MEDS ORDERED: SUCRALFATE 1 GM/10 ML UNIT DOSE CUPS PO ONE (04:22)
[2020-09-12] MEDS ORDERED: METOCLOPRAMIDE HCL INJECTION 10 MG/2 ML VIAL IVPB ONE (04:27)
[2020-09-12] MEDS ORDERED: METOCLOPRAMIDE HCL INJECTION 10 MG/2 ML VIAL ONE (04:59)
[2020-09-12] MEDS ORDERED: SUCRALFATE 1 GM TABLET (FP) ONE (04:59)
[2020-09-12] MEDS ORDERED: ACETAMINOPHEN INJECTION 100 ML IVPB ONE (04:59)
[2020-09-12 05:31] LABS: HEMATOCRIT 37.9 % (32.4-45.2); HEMOGLOBIN 12.8 GM/dL (10.7-15.3); LYMPH % 28.5 % (8-40); MCHC 33.9 g/dl (32.0-36.0); MEAN CELL VOLUME 88.7 fl (80-96); MEAN PLT VOLUME 10.4 fl (7.5-11.1); MONO % 7.8 % (3.8-10.2); NEUT % 61.7 % (42.8-82.8); PLATELET COUNT 260 K/MM3 (134-434); RBC 4.28 M/mm3 (3.60-5.2); RDW 14.4 % (11.6-15.6); WHITE BLOOD COUNT 4.7 K/mm3 (4.0-10.0)
[2020-09-12 05:36] LABS: EPI CELLS 22 /uL (0-25.1); HYALINE CASTS 6 /uL (0-3.1); URINE APPEARANCE CLEAR; URINE BILIRUBIN 1+ (NEGATIVE); URINE COLOR DK YELLOW; URINE GLUCOSE (UA) NEGATIVE (NEGATIVE); URINE KETONE 4+ (NEGATIVE); URINE LEUK ESTERASE 1+ (NEGATIVE); URINE NITRITE POSITIVE (NEGATIVE); URINE PROTEIN TRACE (NEGATIVE); URINE RBC 16 /uL (0-23.9); URINE WBC 9 /uL (0-25.8)
[2020-09-12 05:48] LABS: POTASSIUM 3.3 mmol/L (3.5-5.1)
[2020-09-12 05:51] LABS: ALBUMIN 3.6 g/dl (3.4-5.0); BLOOD UREA NITROGEN 8.6 mg/dL (7-18)
[2020-09-12 05:54] LABS: CREATININE 0.8 mg/dL (0.55-1.3)
[2020-09-12 05:56] LABS: BILIRUBIN,TOTAL 0.5 mg/dL (0.2-1); TOT PROT 7.8 g/dl (6.4-8.2)
[2020-09-12] MEDS ORDERED: POTASSIUM CHLORIDE TABS 20 MEQ TABLET.ER (FP) PO ONE ×2 (06:18→06:26)
[2020-09-12 07:02] VITALS: BP 126/88; PULSE 78
== END 2020-09-12 07:08 | disposition home or self-care (01) ==
LOC: JER 02:56
PROC: 3E0333Z Introduction of Anti-inflammatory into Peripheral Vein, Percutaneous Approach (ICD-10-PCS; principal; 2020-09-12)
PROC: 3E033GC Introduction of Other Therapeutic Substance into Peripheral Vein, Percutaneous Approach (ICD-10-PCS; 2020-09-12)
PROC: 3E033GC Introduction of Other Therapeutic Substance into Peripheral Vein, Percutaneous Approach (ICD-10-PCS; 2020-09-12)
PROC: 3E033GC Introduction of Other Therapeutic Substance into Peripheral Vein, Percutaneous Approach (ICD-10-PCS; 2020-09-12)
DX: R11.2 Nausea with vomiting, unspecified (principal); E87.6 Hypokalemia
CPT/HCPCS: 36415; 80053; 81003; 83690; 84703; 85025; 87086; 96374; 96375; 99284-25; J0131

== ENCOUNTER 2021-10-14 09:45 | Emergency (ER) | payer OTHER ==
[2021-10-14 09:55] VITALS: BP 145/86; PULSE 81; TEMP 98.5; BMI 34.2
[2021-10-14 12:26] LABS: HCG,QUALITATIVE URINE Negative
[2021-10-14 12:28] LABS: PH,URINE 5.5 (5.0-8.0); URINE APPEARANCE CLEAR; URINE BILIRUBIN NEGATIVE (NEGATIVE); URINE COLOR YELLOW; URINE GLUCOSE (UA) NEGATIVE (NEGATIVE); URINE KETONE NEGATIVE (NEGATIVE); URINE LEUK ESTERASE NEGATIVE (NEGATIVE); URINE NITRITE NEGATIVE (NEGATIVE); URINE PROTEIN NEGATIVE (NEGATIVE)
== END 2021-10-14 13:03 | disposition home or self-care (01) ==
LOC: JER 09:45 → JERFT 09:45
DX: B37.9 Candidiasis, unspecified (principal)
CPT/HCPCS: 36415; 81003; 84703; 87070; 87086; 87205; 87491; 87591; 99283-25

== ENCOUNTER 2022-07-28 18:47 | Emergency (ER) | payer OTHER ==
[2022-07-28 19:15] VITALS: BP 150/99; PULSE 77; RESP 20; TEMP 98.1; BMI 35.2
[2022-07-28] MEDS ORDERED: KETOROLAC TROMETHAMINE 60 MG/2 ML VIAL IM ONE (20:50)
[2022-07-28] MEDS ORDERED: KETOROLAC TROMETHAMINE 60 MG/2 ML VIAL ONE (21:04)
== END 2022-07-28 22:36 | disposition home or self-care (01) ==
LOC: FER 18:47
PROC: 3E0233Z Introduction of Anti-inflammatory into Muscle, Percutaneous Approach (ICD-10-PCS; principal; 2022-07-28)
DX: M62.838 Other muscle spasm (principal)
CPT/HCPCS: 72050-TC-FY; 99284-25

== ENCOUNTER 2022-12-08 20:08 | Emergency (ER) | payer OTHER ==
[2022-12-08 20:22] VITALS: BP 138/95; PULSE 94; RESP 16; TEMP 97.8; BMI 36.1
[2022-12-08] MEDS ORDERED: FLUCONAZOLE 150 MG TABLET PO ONE (21:06)
[2022-12-08] MEDS ORDERED: AZITHROMYCIN 500 MG TABLET PO ONE (21:06)
[2022-12-08] MEDS ORDERED: AZITHROMYCIN 250 MG TABLET ONE (21:10)
== END 2022-12-08 21:16 | disposition home or self-care (01) ==
LOC: FER 20:08
DX: B37.31 Acute candidiasis of vulva and vagina (principal); J01.90 Acute sinusitis, unspecified
CPT/HCPCS: 99283-25

== ENCOUNTER 2023-05-15 19:44 | Emergency (ER) | payer OTHER ==
[2023-05-15 19:55] VITALS: BMI 36.3
[2023-05-15] MEDS ORDERED: ACETAMINOPHEN 1000 MG/100 ML BAG IVPB ONE (20:54)
[2023-05-15] MEDS ORDERED: ONDANSETRON 4 MG/2 ML VIAL IVPUSH ONE (20:54)
[2023-05-15] MEDS ORDERED: SODIUM CHLORIDE 1,000 ML IV STA (20:54)
[2023-05-15] MEDS ORDERED: ACETAMINOPHEN INJECTION 100 ML IVPB ONE (21:06)
[2023-05-15] MEDS ORDERED: ONDANSETRON 4 MG/2 ML VIAL ONE (21:07)
[2023-05-15 21:24] LABS: BASO % 0.5 % (0-2.0); EOS % 0.1 % (0-4.5); HEMATOCRIT 37.1 % (32.4-45.2); HEMOGLOBIN 11.8 GM/dL (10.7-15.3); LYMPH % 11.8 % (8-40); MCH 27.1 pg (25.7-33.7); MCHC 31.8 g/dl (32.0-36.0); MEAN CELL VOLUME 85.2 fl (80-96); MONO % 9.2 % (3.8-10.2); NEUT % 78.4 % (42.8-82.8); PLATELET COUNT 221 10^3/uL (134-434); RBC 4.36 M/mm3 (3.60-5.2); RDW 15.4 % (11.6-15.6); WHITE BLOOD COUNT 4.1 K/mm3 (4.0-10.0)
[2023-05-15 21:37] LABS: POTASSIUM 4.1 mmol/L (3.5-5.1)
[2023-05-15 21:40] LABS: ALBUMIN 3.2 g/dl (3.4-5.0); BLOOD UREA NITROGEN 9.2 mg/dL (7-18); MAGNESIUM 1.9 mg/dL (1.8-2.4)
[2023-05-15 21:42] LABS: CREATININE 0.9 mg/dL (0.55-1.3)
[2023-05-15 21:44] LABS: BILIRUBIN,TOTAL 0.3 mg/dL (0.2-1); TOT PROT 7.7 g/dl (6.4-8.2)
[2023-05-15 21:48] LABS: CALCIUM 8.3 mg/dL (8.5-10.1)
[2023-05-15 22:40] VITALS: BP 110/68; PULSE 72; RESP 19; TEMP 98.9
== END 2023-05-15 22:40 | disposition home or self-care (01) ==
LOC: JERFT 19:44
PROC: 3E033NZ Introduction of Analgesics, Hypnotics, Sedatives into Peripheral Vein, Percutaneous Approach (ICD-10-PCS; principal; 2023-05-15)
PROC: 3E033GC Introduction of Other Therapeutic Substance into Peripheral Vein, Percutaneous Approach (ICD-10-PCS; 2023-05-15)
PROC: 3E0337Z Introduction of Electrolytic and Water Balance Substance into Peripheral Vein, Percutaneous Approach (ICD-10-PCS; 2023-05-15)
DX: R05.9 Cough, unspecified (principal); M79.10 Myalgia, unspecified site; U07.1 COVID-19; R51.9 Headache, unspecified; R68.83 Chills (without fever); R11.10 Vomiting, unspecified; B34.9 Viral infection, unspecified
CPT/HCPCS: 0241U-QW; 36415; 80053; 83735; 84703; 85025; 99284-25

== ENCOUNTER 2023-09-26 20:14 | Emergency (ER) | payer OTHER ==
[2023-09-26 20:19] VITALS: BP 151/90; PULSE 82; RESP 20; TEMP 98.4; BMI 36.1
[2023-09-26] MEDS ORDERED: ACETAMINOPHEN 500 MG TABLET (FP) PO ONE (22:09)
[2023-09-26] MEDS ORDERED: IBUPROFEN 600 MG TABLET (FP) PO ONE ×2 (22:09→22:15)
[2023-09-26] MEDS ORDERED: ACETAMINOPHEN 500 MG TABLET (FP) ONE (22:15)
[2023-09-26 22:35] LABS: URIC ACID 4.2 mg/dL (2.6-7.2)
== END 2023-09-26 23:08 | disposition home or self-care (01) ==
LOC: JERFT 20:14
DX: R22.42 Localized swelling, mass and lump, left lower limb (principal); M25.572 Pain in left ankle and joints of left foot
CPT/HCPCS: 36415; 73610-TC-LT-FY; 73630-TC-LT; 84550; 85651; 86140; 99284-25

== ENCOUNTER 2024-04-21 20:30 | Emergency (ER) | payer OTHER ==
[2024-04-21 20:37] VITALS: BP 134/98; PULSE 69; RESP 16; TEMP 97.5; BMI 36.1
[2024-04-21] MEDS ORDERED: KETOROLAC TROMETHAMINE 30 MG/1 ML VIAL ONE (21:15)
[2024-04-21] MEDS: SODIUM CHLORIDE 1,000 ML IV ONE (21:25)
[2024-04-21] MEDS: KETOROLAC TROMETHAMINE 30 MG/1 ML VIAL IVPUSH ONE (21:25)
[2024-04-21 21:29] LABS: HEMATOCRIT 36.7 % (32.4-45.2); HEMOGLOBIN 11.8 G/dL (10.7-15.3); MCH 28.4 pg (25.7-33.7); MCHC 32.2 g/dl (32.0-36.0); MEAN CELL VOLUME 88.4 fl (80-96); PLATELET COUNT 217.6 10^3/uL (134-434); RBC 4.15 10^6/uL (3.60-5.2); RDW 15.7 % (11.6-15.6); WHITE BLOOD COUNT 5.6 10^3/uL (4.0-10.8)
[2024-04-21 21:50] LABS: ALBUMIN 3.7 g/dl (3.4-5.0); BILIRUBIN,TOTAL 0.4 mg/dl (0.2-1); CALCIUM 8.7 mg/dl (8.5-10.1); CREATININE 0.8 mg/dl (0.6-1.3); POTASSIUM 3.7 mmol/L (3.5-5.1)
[2024-04-21] MEDS ORDERED: LIDOCAINE 5% TOPICAL PATCH ONE (22:25)
[2024-04-21] MEDS ORDERED: CYCLOBENZAPRINE HCL 5 MG TABLET ONE (22:25)
[2024-04-21] MEDS: CYCLOBENZAPRINE HCL 10 MG TABLET (FP) PO ONE (22:28)
[2024-04-21] MEDS: LIDOCAINE 5% TOPICAL PATCH TP ONE (22:28)
[2024-04-22] MEDS ORDERED: LIDOCAINE PATCH REMOVAL MC SCH (10:00)
== END 2024-04-21 22:33 | disposition home or self-care (01) ==
LOC: FER 20:30
PROC: 3E0333Z Introduction of Anti-inflammatory into Peripheral Vein, Percutaneous Approach (ICD-10-PCS; principal; 2024-04-21)
PROC: 3E0337Z Introduction of Electrolytic and Water Balance Substance into Peripheral Vein, Percutaneous Approach (ICD-10-PCS; 2024-04-21)
DX: M54.6 Pain in thoracic spine (principal)
CPT/HCPCS: 36415; 74176-TC; 80053; 81003; 81025; 85027; 87086; 99284-25

== ENCOUNTER 2024-09-20 04:21 | Day surgery (SDC) | payer OTHER ==
[2024-09-12 15:03] VITALS: BMI 38.2
[2024-09-20] MEDS ORDERED: BUPIVACAINE HCL/PF 0.5% (5MG/ML) 10 ML VIAL ONE (14:37)
[2024-09-20] MEDS ORDERED: PROPOFOL 20 ML ONE (16:08)
[2024-09-20] MEDS ORDERED: SUGAMMADEX SODIUM 200 MG/2 ML VIAL ONE (16:08)
[2024-09-20] MEDS ORDERED: LIDOCAINE HCL/PF 2% SDV 5ML VIAL ONE (16:09)
[2024-09-20] MEDS ORDERED: ROCURONIUM BROMIDE 50 MG/5 ML SYRINGE ONE (16:09)
[2024-09-20] MEDS ORDERED: MIDAZOLAM HCL 2 MG/2 ML SINGLE DOSE VIAL ONE (16:09)
[2024-09-20] MEDS ORDERED: DEXAMETHASONE SOD PHOSPHATE 4 MG/1 ML VIAL ONE (16:09)
[2024-09-20] MEDS ORDERED: ONDANSETRON 4 MG/2 ML VIAL ONE (16:09)
[2024-09-20] MEDS ORDERED: ceFAZolin SODIUM 1 GM VIAL ONE (16:09)
[2024-09-20] MEDS ORDERED: SEVOFLURANE 250 ML BTL ONE ×2 (16:09→16:35)
[2024-09-20] MEDS ORDERED: KETOROLAC TROMETHAMINE 30 MG/1 ML VIAL ONE (16:35)
[2024-09-20] MEDS: BUPIVACAINE HCL/PF 0.5% (5MG/ML) 10 ML VIAL IJ ONE (16:43)
[2024-09-20] MEDS ORDERED: IBUPROFEN 800 MG/8 ML IJ IVPB PRN (17:49)
[2024-09-20] MEDS ORDERED: ONDANSETRON 4 MG/2 ML VIAL IVPUSH PRN ×2 (17:49→17:51)
[2024-09-20] MEDS ORDERED: IBUPROFEN 600 MG TABLET (FP) PO PRN (17:49)
[2024-09-20] MEDS ORDERED: BENZOCAINE/MENTH/CETYLPYRD CL 1 EACH LOZENGE MM PRN (17:52)
[2024-09-20] MEDS ORDERED: ELECTROLYTE-148 SOLN 1,000 ML IV SCH (18:00)
[2024-09-20] MEDS ORDERED: LACTATED RINGERS SOLUTION 1,000 ML IV SCH (18:00)
[2024-09-20] MEDS: ACETAMINOPHEN INJECTION 100 ML ONE (18:18)
[2024-09-20] MEDS: ACETAMINOPHEN 1000 MG/100 ML BAG IVPB ONE (18:18)
[2024-09-20 19:15] VITALS: RESP 18
[2024-09-20] MEDS ORDERED: oxyCODONE HCL 5 MG TABLET ONE (19:24)
[2024-09-20] MEDS: oxyCODONE HCL 5 MG TABLET PO PRN (19:30)
[2024-09-20 20:23] VITALS: TEMP 97.8
[2024-09-20 20:46] VITALS: BP 132/79; PULSE 84
== END 2024-09-20 20:45 | disposition home or self-care (01) ==
LOC: JASU-SURG 04:21
PROVIDERS: ATTEND Obstetrics & Gynecology
PROC: 0UDB8ZZ Extraction of Endometrium, Via Natural or Artificial Opening Endoscopic (ICD-10-PCS; 2024-09-20)
PROC: 0UT74ZZ Resection of Bilateral Fallopian Tubes, Percutaneous Endoscopic Approach (ICD-10-PCS; principal; 2024-09-20 14:00)
DX: Z30.2 Encounter for sterilization (principal); N93.9 Abnormal uterine and vaginal bleeding, unspecified
CPT/HCPCS: 81025; 86850; 86900; 86901; 88305-TC; 94760; J0131

== ENCOUNTER 2025-01-27 01:51 | Emergency (ER) | payer OTHER ==
[2025-01-27 01:54] VITALS: BMI 39.0
[2025-01-27] MEDS: ACETAMINOPHEN 1000 MG/100 ML BAG IVPB ONE (02:59)
[2025-01-27] MEDS: FAMOTIDINE 20 MG/50 ML IVPB 20 MG/50 ML MG IVPB ONE (02:59)
[2025-01-27] MEDS: ONDANSETRON 4 MG/2 ML VIAL IVPUSH ONE (03:00)
[2025-01-27] MEDS ORDERED: ACETAMINOPHEN INJECTION 100 ML ONE (03:02)
[2025-01-27] MEDS ORDERED: ONDANSETRON 4 MG/2 ML VIAL ONE (03:02)
[2025-01-27] MEDS ORDERED: FAMOTIDINE 10 MG/ML VIAL IVPB ONE (03:02)
[2025-01-27 03:35] LABS: ABSOLUTE IMMATURE GRANULOCYTES 0.02 x10^3/uL (0.0-0.031); BASOPHILS # 0.05 x10^3/uL (0.01-0.08); EOSINOPHIL % 0.5 % (0.7-5.8); EOSINOPHILS # 0.04 x10^3/uL (0.04-0.36); HEMATOCRIT 35.6 % (34.1-44.9); MCHC 30.9 g/dl (32.2-35.5); MEAN CELL VOLUME 88.3 fl (79.4-94.8); MEAN PLT VOLUME 11.9 fl (9.4-12.3); MONOCYTE # 0.57 x10^3/uL (0.24-0.86); MONOCYTE % 6.9 % (4.7-12.5); PLATELET COUNT 286 x10^3/uL (182-369); RDW 13.9 % (12.1-16.8)
[2025-01-27 03:38] LABS: EPI CELLS 6 /uL (0-25.1); HYALINE CASTS 0 /uL (0-3.1); URINE APPEARANCE CLEAR; URINE BACTERIA 73 /uL (0-1359); URINE BILIRUBIN NEGATIVE (NEGATIVE); URINE COLOR YELLOW; URINE GLUCOSE (UA) NEGATIVE (NEGATIVE); URINE KETONE NEGATIVE (NEGATIVE); URINE LEUK ESTERASE NEGATIVE (NEGATIVE); URINE NITRITE NEGATIVE (NEGATIVE); URINE PROTEIN NEGATIVE (NEGATIVE); URINE RBC 636 /uL (0-23.9); URINE WBC 2 /uL (0-25.8)
[2025-01-27 03:51] LABS: INR 1.08 (0.83-1.09); PROTHROMBIN TIME (PATIENT) 11.8 SEC (9.7-13.0)
[2025-01-27 03:54] LABS: ACTIVATED PTT 32.1 SECONDS (25.2-36.5)
[2025-01-27 04:04] LABS: ALBUMIN 3.4 g/dl (3.4-5.0)
[2025-01-27 04:05] LABS: BLOOD UREA NITROGEN 13.2 mg/dL (7-18); MAGNESIUM 2.1 mg/dL (1.8-2.4)
[2025-01-27 04:09] LABS: BILIRUBIN,TOTAL 0.3 mg/dL (0.2-1); TOT PROT 7.7 g/dl (6.4-8.2)
[2025-01-27] MEDS ORDERED: KETOROLAC TROMETHAMINE 15 MG/ML VIAL ONE (07:11)
[2025-01-27] MEDS: SODIUM CHLORIDE 1,000 ML IV STA (07:29)
[2025-01-27] MEDS: KETOROLAC TROMETHAMINE 15 MG/ML VIAL IVPUSH ONE (07:30)
[2025-01-27 08:52] VITALS: BP 140/82; PULSE 61; RESP 20; TEMP 97.5
== END 2025-01-27 09:05 | disposition home or self-care (01) ==
LOC: JER 01:51
PROC: 3E033GC Introduction of Other Therapeutic Substance into Peripheral Vein, Percutaneous Approach (ICD-10-PCS; principal; 2025-01-27)
PROC: 3E033NZ Introduction of Analgesics, Hypnotics, Sedatives into Peripheral Vein, Percutaneous Approach (ICD-10-PCS; 2025-01-27)
PROC: 3E033GC Introduction of Other Therapeutic Substance into Peripheral Vein, Percutaneous Approach (ICD-10-PCS; 2025-01-27)
PROC: 3E033GC Introduction of Other Therapeutic Substance into Peripheral Vein, Percutaneous Approach (ICD-10-PCS; 2025-01-27)
PROC: 3E0337Z Introduction of Electrolytic and Water Balance Substance into Peripheral Vein, Percutaneous Approach (ICD-10-PCS; 2025-01-27)
DX: R10.12 Left upper quadrant pain (principal); R10.32 Left lower quadrant pain
CPT/HCPCS: 36415; 71046-TC-FY; 74176-TC; 80053; 81003; 83690; 83735; 84484; 84703; 85025; 85610; 85730; 87086; 99285-25; J0131

== ENCOUNTER 2025-03-20 14:02 | Emergency (ER) | payer OTHER ==
[2025-03-20 14:11] VITALS: BP 137/100; PULSE 75; RESP 16; TEMP 98.2; BMI 29.5
[2025-03-20] MEDS ORDERED: KETOROLAC TROMETHAMINE 30 MG/1 ML VIAL ONE (15:33)
[2025-03-20] MEDS ORDERED: LIDOCAINE 5% TOPICAL PATCH ONE (15:33)
[2025-03-20] MEDS: KETOROLAC TROMETHAMINE 30 MG/1 ML VIAL IM ONE (15:41)
[2025-03-20] MEDS: LIDOCAINE 5% TOPICAL PATCH TP ONE (15:41)
[2025-03-20] MEDS ORDERED: LIDOCAINE PATCH REMOVAL MC SCH (22:00)
== END 2025-03-20 17:22 | disposition home or self-care (01) ==
LOC: FER 14:02
PROC: 3E0233Z Introduction of Anti-inflammatory into Muscle, Percutaneous Approach (ICD-10-PCS; principal; 2025-03-20)
DX: M54.50 Low back pain, unspecified (principal)
CPT/HCPCS: 99284-25